=== PATIENT | male | born 1990 | race Caucasian/White ===

== ENCOUNTER 2016-06-08 07:10 | Emergency (ER) | payer BC ==
[~2016-06-08] VITALS: Ht 172.7 cm; Wt 93.4 kg
[2016-06-08 10:40] VITALS: BP 134/68
== END 2016-06-08 10:40 | disposition home or self-care (01) ==
LOC: ED 07:10
DX: S06.0X0A Concussion without loss of consciousness, initial encounter (principal); S13.4XXA Sprain of ligaments of cervical spine, initial encounter; V43.52XA Car driver injured in collision with other type car in traffic accident, initial encounter; W22.10XA Striking against or struck by unspecified automobile airbag, initial encounter; Y93.89 Activity, other specified; Y99.8 Other external cause status; Y92.488 Other paved roadways as the place of occurrence of the external cause